=== PATIENT | female | born 1935 | race Caucasian/White ===

== ENCOUNTER 2016-11-13 19:10 | Inpatient (IN) | payer MEDICARE, BC ==
[~2016-11-13] VITALS: Ht 157.5 cm; Wt 83.9 kg
--- NOTE | 2016-11-13 19:20 | NUR ---
80 YO FEMALE BB SELF. PATIENT IS ALERT X 3, C/O LEFT LOWER EXTREMITY PAIN AND SWELLING X 2 WEEKS. NOTED REDNESS AT SITE, CMS DISTAL TO SITE WNL. PT AMBULATED TO ER BED WITH ASSISTANCE. PT GOWNED, PLACED ON MANAGER PROCUREMENT. AWAITING ORDERS FROM PROVIDER, WILL CONTINUE TO MONITOR
[2016-11-13] MEDS ORDERED: TRAM50TA2 PO (19:26)
[2016-11-13] MEDS ORDERED: FURO40TA5 PO (19:26)
[2016-11-13] MEDS ORDERED: MONT10TA22 PO (19:26)
[2016-11-13] MEDS ORDERED: LOSA50TA21 PO (19:26)
[2016-11-13] MEDS ORDERED: QUET25TA PO ×2 (19:26)
[2016-11-13] MEDS ORDERED: INSU100I14 SQ ×3 (19:26)
[2016-11-13] MEDS ORDERED: POTA20TA83 PO (19:26)
[2016-11-13] MEDS ORDERED: CYAN10009 PO (19:26)
[2016-11-13] MEDS ORDERED: CHOL500052 PO (19:26)
[2016-11-13] MEDS ORDERED: INSU3INS6 SQ (19:26)
[2016-11-13] MEDS ORDERED: ROSU10TA PO (19:26)
[2016-11-13] MEDS ORDERED: ASPI81TA2 PO (19:26)
[2016-11-13] MEDS ORDERED: LEVO100T9 PO (19:26)
[2016-11-13] MEDS ORDERED: PROP150T2 PO (19:26)
--- NOTE | 2016-11-13 19:35 | NUR ---
20G RAC IV STARTED, BLOOD SAMPLE OBTAINED AND SENT TO LAB
[2016-11-13 19:46] LABS: BASOPHILS % (AUTO) 0.5 % (0.0-2.0); EOSINOPHILS # (AUTO) 0.2 /CMM (0.0-0.7); EOSINOPHILS % (AUTO) 3.4 % (0.0-6.0); HEMATOCRIT 32 % (33-45); HEMOGLOBIN 10.7 g/dL (11.5-14.8); LYMPHOCYTES # (AUTO) 1.5 /CMM (0.8-4.8); MEAN CORPUSCULAR HEMOGLOBIN 30 PG (26.0-33.0); MEAN CORPUSCULAR HGB CONC 33 g/dl (31.0-36.0); MEAN CORPUSCULAR VOLUME 89 fL (82-100); MONOCYTES # (AUTO) 0.6 /CMM (0.1-1.30); NEUTROPHILS % (AUTO) 67.1 % (43.0-81.0); PLATELET COUNT (AUTO) 348 /CMM (150-450); RDW COEFFICIENT OF VARIATION 13.9 (11.5-15.0); WHITE BLOOD COUNT (AUTO) 7.3 K/uL (4.3-11.0)
--- NOTE | 2016-11-13 19:52 | NUR ---
SOLUTIONS DEVELOPER AT BED SIDE FOR VENOUS DUPLEX
[2016-11-13 19:58] LABS: CALCIUM, SERUM 8.4 mg/dL (8.5-10.1); CARBON DIOXIDE 30 mmol/L (21-32); CHLORIDE 104 mmol/L (98-107); CREATININE 2.1 mg/dL (0.6-1.3); GLUCOSE 85 mg/dL (74-106); POTASSIUM 4.4 mmol/L (3.5-5.1); SODIUM SERUM 142 mmol/L (136-145); UREA NITROGEN, BLOOD 25 mg/dL (7-18)
[2016-11-13] MEDS ORDERED: Z GUARD REMEDY 2 OZ OINT TP PRN (20:00)
[2016-11-13] MEDS ORDERED: MAGNESIUM HYDROXIDE 30 ML UDC PO PRN (20:00)
[2016-11-13] MEDS ORDERED: ONDANSETRON HCL/PF 4 MG/2 ML VIAL IVP PRN (20:00)
[2016-11-13] MEDS ORDERED: HYDROCODONE/APAP 5/325MG 1 EACH TABLET PO PRN (20:00)
[2016-11-13] MEDS ORDERED: TRAMADOL HCL 50 MG TABLET PO PRN (20:00)
[2016-11-13] MEDS ORDERED: ACETAMINOPHEN 325 MG TABLET PO PRN (20:00)
[2016-11-13] MEDS ORDERED: MAG HYDROX/AL HYDROX/SIMETH 30 ML UDC PO PRN (20:00)
[2016-11-13 20:02] LABS: INR 0.99 (0.87-1.13); PROTHROMBIN TIME 10.3 SECS (9.5-12.7)
[2016-11-13 20:09] LABS: ALANINE AMINOTRANSFERASE 27 U/L (12-78); ALBUMIN 3.9 g/dL (3.4-5.0); ALKALINE PHOSPHATASE 79 U/L (46-116); ASPARTATE AMINOTRANSFERASE 23 U/L (15-37); B-TYPE NATRIURETIC PEPTIDE 465 PG/ML (0-125); BILIRUBIN,DIRECT 0.1 mg/dL (0.0-0.2); BILIRUBIN,TOTAL 0.4 mg/dL (0.2-1.0); TOTAL PROTEIN, SERUM 7.1 g/dL (6.4-8.2)
[2016-11-13] MEDS ORDERED: CLINDAMYCIN 900 MG/6 ML VIAL ONE (20:45)
[2016-11-13] MEDS ORDERED: CLINDAMYCIN 600 MG in IV D5W 100 ML IV ONE (21:00)
--- NOTE | 2016-11-13 21:12 | NUR ---
MEDICATED PT ORDERED
[2016-11-13] MEDS ORDERED: BUMETANIDE INJ 4 MG in IV NS 0.9% 24 ML IV ONE (21:30)
[2016-11-13] MEDS ORDERED: FEE PK DOSING 1 MIN EA MC ONE (21:33)
[2016-11-13] MEDS ORDERED: VANCOMYCIN 1 GM in IV D5W 250 ML IV ONE (22:00)
--- NOTE | 2016-11-13 22:00 | NUR ---
pt alert,oriented, ambulatory with walker, admitted for cellulitis both legs, legs swollen and red.with slight pain . medicated x1 of norco with good relief, vss,afebrile,sinus rhythm on monitor.kept legs elevated.call light at reached.
[2016-11-13] MEDS: ASPIRIN 81 MG TAB.CHEW PO SCH (23:00)
[2016-11-13] MEDS: INSULIN LISPRO/ASPART 100 UNIT/ML CARTRIDGE SQ SCH (23:00)
[2016-11-13] MEDS: CYANOCOBALAMIN 500 MCG TABLET PO SCH (23:00)
[2016-11-13 23:01] VITALS: BP 147/59
[2016-11-13] MEDS: INSULIN DETEMIR 100 UNIT/ML CARTRIDGE SQ SCH (23:30)
[2016-11-13] MEDS: ENOXAPARIN SODIUM 30 MG/0.3 ML DISP.SYRIN SQ SCH (23:51)
[2016-11-13] MEDS: ATORVASTATIN 10 MG TABLET PO SCH (23:51)
[2016-11-13] MEDS: QUETIAPINE FUMARATE 25 MG TABLET PO SCH (23:51)
[2016-11-13] MEDS: BLOOD SUGAR DIAGNOSTIC 1 EACH STRIP IN SCH (23:57)
[2016-11-14] VITALS (7 sets, daily range): BP systolic 98–138; BP diastolic 51–65
--- NOTE | 2016-11-14 05:35 | NUR ---
pt slept well overnight after norco, sleeping comfortably with HOB elevated and both legs elevated with pillows, pt on bumex gtt, pt made aware that if didn't void will insert campuzano. pt refused campuzano and get up to commode. voided 600cc. specimen already sent to lab.given vanco without side effect.all needs attended, call light at reached.
[2016-11-14 05:41] LABS: APPEARANCE,URINE CLEAR (CLEAR); BILIRUBIN,URINE NEGATIVE (NEGATIVE); BLOOD, URINE NEGATIVE Ery/uL (NEGATIVE); COLOR,URINE YELLOW (YELLOW); KETONES,URINE NEGATIVE (NEGATIVE); LEUKOCYTE ESTERASE ,URINE NEGATIVE (NEGATIVE); NITRITE, URINE NEGATIVE (NEGATIVE); PROTEIN,URINE NEGATIVE (NEGATIVE); UGLUCOSE NEGATIVE (NEGATIVE); UROBILINOGEN,URINE 0.2 EU/dL (0.2)
[2016-11-14 06:58] LABS: BASOPHILS % (AUTO) 0.3 % (0.0-2.0); EOSINOPHILS # (AUTO) 0.2 /CMM (0.0-0.7); EOSINOPHILS % (AUTO) 3.7 % (0.0-6.0); HEMATOCRIT 30 % (33-45); HEMOGLOBIN 10.1 g/dL (11.5-14.8); LYMPHOCYTES # (AUTO) 1.8 /CMM (0.8-4.8); LYMPHOCYTES % (AUTO) 30.7 % (20.0-44.0); MEAN CORPUSCULAR HEMOGLOBIN 30 PG (26.0-33.0); MEAN CORPUSCULAR HGB CONC 34 g/dl (31.0-36.0); MEAN CORPUSCULAR VOLUME 89 fL (82-100); MONOCYTES # (AUTO) 0.5 /CMM (0.1-1.30); MONOCYTES % (AUTO) 9.1 % (2.0-12.0); NEUTROPHILS # (AUTO) 3.2 /CMM (1.8-8.9); NEUTROPHILS % (AUTO) 56.2 % (43.0-81.0); PLATELET COUNT (AUTO) 270 /CMM (150-450); RED BLOOD CELL COUNT(AUTO) 3.32 MIL/uL (4.0-5.2); WHITE BLOOD COUNT (AUTO) 5.8 K/uL (4.3-11.0)
[2016-11-14] MEDS: BLOOD SUGAR DIAGNOSTIC 1 EACH STRIP IN SCH ×4 (06:58→21:36)
[2016-11-14 07:28] LABS: ALANINE AMINOTRANSFERASE 26 U/L (12-78); ALBUMIN 3.7 g/dL (3.4-5.0); ALKALINE PHOSPHATASE 73 U/L (46-116); ASPARTATE AMINOTRANSFERASE 21 U/L (15-37); BILIRUBIN,TOTAL 0.3 mg/dL (0.2-1.0); CALCIUM, SERUM 8.4 mg/dL (8.5-10.1); CARBON DIOXIDE 32 mmol/L (21-32); CHLORIDE 103 mmol/L (98-107); GLUCOSE 130 mg/dL (74-106); MAGNESIUM 2.3 mg/dL (1.8-2.4); PHOSPHORUS 4.7 mg/dL (2.5-4.9); POTASSIUM 3.9 mmol/L (3.5-5.1); SODIUM SERUM 139 mmol/L (136-145); TOTAL PROTEIN, SERUM 6.6 g/dL (6.4-8.2); UREA NITROGEN, BLOOD 27 mg/dL (7-18)
[2016-11-14 07:30] LABS: CHOLESTEROL 136 mg/dL (<200); HDL CHOLESTEROL 51 mg/dL (40-60); LDL 68 mg/dL (0-99); THYROID STIMULATING HORMONE 6.731 uIU/mL (0.358-3.74); TRIGLYCERIDES 122 mg/dL (30-150)
[2016-11-14] MEDS ORDERED: LEVOTHYROXINE SODIUM 100 MCG TABLET PO SCH (07:30)
[2016-11-14] MEDS: INSULIN LISPRO/ASPART 100 UNIT/ML CARTRIDGE SQ SCH ×2 (07:30→11:30)
--- NOTE | 2016-11-14 07:47 | NUR ---
SPOKE WITH SON RHONA SWIFT ,HE WILL BRING ADVANCE DIRECTIVE LATER TODAY. PT IS FULL CODE WITH [facility].
[2016-11-14] MEDS: CYANOCOBALAMIN 500 MCG TABLET PO SCH (08:44)
[2016-11-14] MEDS: ASPIRIN 81 MG TAB.CHEW PO SCH (08:44)
[2016-11-14] MEDS: QUETIAPINE FUMARATE 25 MG TABLET PO SCH ×2 (08:44→21:28)
[2016-11-14] MEDS: MONTELUKAST SODIUM (10MG) 10 MG TABLET PO SCH (08:45)
[2016-11-14] MEDS: LOSARTAN POTASSIUM 50 MG TABLET PO SCH (08:45)
--- NOTE | 2016-11-14 08:55 | NUR ---
MS/RN Medications Morning medications administered as ordered, no problems swallowing.
[2016-11-14] MEDS: PROPAFENONE HCL 150 MG TABLET PO SCH ×3 (09:00→18:02)
--- NOTE | 2016-11-14 11:30 | NUR ---
MS/RN S/B Dr Alatorre Seen by Dr Alatorre - to continue with current IVAB, and treatemnt. Labs ordered for tomorrow.
--- NOTE | 2016-11-14 12:15 | NUR ---
MS/RN Blood sugar Blood sugar at noon - 184, patient refused coverage.
--- NOTE | 2016-11-14 15:43 | NUR ---
MS/RN S/B Dr Pritchett Seen by Dr Pritchett - renal failure likely due to chronic kidney disease secondary to hypertension. Continue with medications at current dosages.
[2016-11-14] MEDS ORDERED: BUMETANIDE INJ 4 MG in IV NS 0.9% 24 ML IV ONE (17:00)
[2016-11-14] MEDS ORDERED: INSULIN ASPART HUMALOG/NOVOLOG 100 UNIT/ML CARTRIDGE SQ PRN (18:00)
--- NOTE | 2016-11-14 18:25 | NUR ---
MS/RN End note Bumex infusion started at 10ml/hr to run over 4 hours total. Patient educated as to the purpose of bumex and that it will make her void frequently. Bedside commode at bedside. Patient instructed to use call light before getting out of bed. All needs attended at this time, skin has been kept clean and dry, call light within reach, will endorse to overnight cashier.
[2016-11-14] MEDS ORDERED: IV NS 0.9% 500 ML IV ONE (21:00)
[2016-11-14] MEDS ORDERED: IV NS 0.9% 500 ML BAG IV ONE (21:00)
--- NOTE | 2016-11-14 21:00 | NUR ---
PT ALERT,ORIENTED ,DENIES ANY PAIN INFUSING BUMEX GTT, INFUSING WELL TO RAC,VSS,AFEBRILE SINUS ON MONITOR, CALL LIGHT AT REACHED,BED ALARM ACTIVE.
[2016-11-14] MEDS: ATORVASTATIN 10 MG TABLET PO SCH (21:28)
[2016-11-14] MEDS: ENOXAPARIN SODIUM 30 MG/0.3 ML DISP.SYRIN SQ SCH (21:29)
[2016-11-14] MEDS: VANCOMYCIN 0.75 GM in IV D5W 250 ML IV SCH (21:30)
[2016-11-14] MEDS: INSULIN DETEMIR 100 UNIT/ML CARTRIDGE SQ SCH (21:38)
[2016-11-15] VITALS: BP 112/56
[2016-11-15 04:00] VITALS: BP 157/65
[2016-11-15 06:00] VITALS: BP 127/61
[2016-11-15] MEDS: BLOOD SUGAR DIAGNOSTIC 1 EACH STRIP IN SCH ×4 (06:42→21:49)
--- NOTE | 2016-11-15 07:00 | NUR ---
PT VOIDED TO COMMODE WITH ASSIST, SLEPT WELL OVERNIGHT,DENIES ANY PAIN,ACCUCHECK 130MG/DL NO SS, CONTINUE TO MONITOR, SINUS RHYTHM WITH 1AVB.ALL NEEDS ATTENDED,CALL LIGHT AT REACHED
--- NOTE | 2016-11-15 07:10 | NUR ---
MS RN OPENING NOTES RECEIVED PT FROM NIGHTSHIFT NURSE IN STABLE CONDITION. PT IS A/O X3 WITH PERIODS OF FORGETFULNESS. NO SOB OR SIGNS OF DISTRESS NOTED. BREATHING IS EVEN AND UNLABORED. PT DENIES ANY PAIN AT THIS TIME. REDNESS AND SWELLING NOTED ON BILATERAL LOWER EXTREMITIES. IV PRESENT ON RIGHT AC 20G HL. NO REDNESS OR SIGNS OF INFILTRATION NOTED. BED IN LOW LOCKED POSITION, SIDE RAILS UP X2, BEDSIDE COMMODE WITHIN PT'S REACH AND EASY ACCESS, CALL LIGHT WITHIN REACH. PT REMINDED TO CALL FOR ASSISTANCE. PT VERBALIZED UNDERSTANDING. BED ALARM ON. WILL CONTINUE TO MONITOR.
[2016-11-15 07:18] LABS: CALCIUM, SERUM 8.3 mg/dL (8.5-10.1); CARBON DIOXIDE 32 mmol/L (21-32); CHLORIDE 102 mmol/L (98-107); CREATININE 1.8 mg/dL (0.6-1.3); GLUCOSE 121 mg/dL (74-106); POTASSIUM 3.7 mmol/L (3.5-5.1); SODIUM SERUM 140 mmol/L (136-145); UREA NITROGEN, BLOOD 25 mg/dL (7-18)
[2016-11-15] MEDS: INSULIN LISPRO/ASPART 100 UNIT/ML CARTRIDGE SQ SCH ×2 (07:30→11:58)
[2016-11-15 08:00] VITALS: BP 111/75
[2016-11-15] MEDS: CYANOCOBALAMIN 500 MCG TABLET PO SCH (08:29)
[2016-11-15] MEDS: ASPIRIN 81 MG TAB.CHEW PO SCH (08:30)
[2016-11-15] MEDS: MONTELUKAST SODIUM (10MG) 10 MG TABLET PO SCH (08:30)
[2016-11-15] MEDS: QUETIAPINE FUMARATE 25 MG TABLET PO SCH ×2 (08:30→21:47)
[2016-11-15] MEDS: LEVOTHYROXINE SODIUM 100 MCG TABLET PO SCH (08:30)
[2016-11-15] MEDS: PROPAFENONE HCL 150 MG TABLET PO SCH (08:31)
[2016-11-15] MEDS: LOSARTAN POTASSIUM 50 MG TABLET PO SCH (08:31)
[2016-11-15] MEDS ORDERED: BUMETANIDE INJ 6 MG in IV NS 0.9% 36 ML IV ONE (11:00)
[2016-11-15] MEDS ORDERED: METOPROLOL TARTRATE 25 MG TABLET PO SCH (11:25)
[2016-11-15] MEDS: CEFTRIAXONE 1 G in IV D5W 50 ML IV SCH (11:56)
--- NOTE | 2016-11-15 14:36 | NUR ---
MS RN NOTES YANI THE PHYSICAL THERAPY WAS NOTIFIED IN REGARDS TO SEEING THE PT FOR PHYSICAL THERAPY PER DR. RICKS'S REQUEST. PER YANI, "PT WILL SEE THE PT TOMORROW".
[2016-11-15 16:00] VITALS: BP 111/73
--- NOTE | 2016-11-15 19:08 | NUR ---
MS RN CLOSING NOTES PT REMAINS IN STABLE CONDITION. ALL NEEDS WERE MET DURING SHIFT AND ORDERS CARRIED OUT ACCORDINGLY. LOWER EXTREMITIES REMAINED ELEVATED ORDERED BY THE MD. PT DENIES PAIN AT THIS TIME. ALL SAFETY MEASURES REMAIN IN PLACE. FLUID RESTRICTIONS FOLLOWED ORDERED. WILL ENDORSE TO NIGHTSHIFT NURSE FOR LUIS
[2016-11-15 20:00] VITALS: BP_SYST 129; BP_DIAS 46; BP_DIAS 50
--- NOTE | 2016-11-15 20:00 | NUR ---
MS RN NOTES RECEIVED PATIENT RESTING IN BED IN SEMI WATTS POSITION WITH FAMILY AT BEDSIDE. NO C/O PAIN, NO ACUTE DISTRESS NOTED. TALKATIVE, SMILING. PERIPHERAL IV ACCESS TO RAC, INTACT PATENT. ON FLUID RESTRICTIONS ORDERED DUE TO SWELLING OF BLE/CELLULITIS. BED IN LOW LOCKED POSITION. CALL LIGHT IN PLACE. CONTINUING TO OBSERVE.
[2016-11-15] MEDS: ENOXAPARIN SODIUM 30 MG/0.3 ML DISP.SYRIN SQ SCH (21:44)
[2016-11-15] MEDS: METOPROLOL TARTRATE 25 MG TABLET PO SCH (21:46)
[2016-11-15] MEDS: ATORVASTATIN 10 MG TABLET PO SCH (21:48)
[2016-11-15] MEDS: VANCOMYCIN 0.75 GM in IV D5W 250 ML IV SCH (21:49)
[2016-11-15] MEDS: INSULIN DETEMIR 100 UNIT/ML CARTRIDGE SQ SCH (21:54)
--- NOTE | 2016-11-15 23:50 | NUR ---
RN NOTES IV GOT INFILTRATED,. NEW IV LINE INSERTED
--- NOTE | 2016-11-16 06:24 | NUR ---
MS RN NOTES PATIENT SLEPT INTERMITTENTLY AT NIGHT. NO C/O PAIN, NO DISCOMFORT OR DISTRESS NOTED. OUT OF BED TO USE BED SIDE COMMODE. NO WORSENING SYMPTOMS OF CELLULITIS OF BLE NOTED. IN STABLE CONDITION. IV ACCESS TO RIGHT HAND, NO INFILTRATION OR S/S OF INFECTION NOTED. ON FLUID RESTRICTIONS & FOLLOWED MD ORDERS. BED IN LOW LOCKED POSITION. CALL LIGHT WITHIN REACH. ALL NEEDS MET. WILL ENDORSE TO AM SHIFT.
[2016-11-16] MEDS: BLOOD SUGAR DIAGNOSTIC 1 EACH STRIP IN SCH ×4 (06:47→22:47)
--- NOTE | 2016-11-16 07:15 | NUR ---
RN INITIAL NOTES REPORT RECEIVED AT THE BEDSIDE. PATIENT IS RESTING COMFORTABLY IN BED. NO SOB OR DISTRESS NOTED AT THIS TIME. PATIENT DENIES PAIN AT THIS TIME. BED IN A LOW POSITION, CALL LIGHT WITHIN PATIENT REACH. WILL CONTINUE TO MONITOR.
[2016-11-16 07:44] LABS: CALCIUM, SERUM 8.8 mg/dL (8.5-10.1); CARBON DIOXIDE 32 mmol/L (21-32); CHLORIDE 102 mmol/L (98-107); CREATININE 1.9 mg/dL (0.6-1.3); GLUCOSE 126 mg/dL (74-106); POTASSIUM 3.7 mmol/L (3.5-5.1); SODIUM SERUM 141 mmol/L (136-145); UREA NITROGEN, BLOOD 30 mg/dL (7-18)
[2016-11-16 08:00] VITALS: BP 120/64
[2016-11-16 08:15] LABS: IRON, SERUM 62 ug/dl (50-175); TOTAL IRON BINDING CAPACITY 289 ug/dl (250-450)
[2016-11-16] MEDS: METOPROLOL TARTRATE 25 MG TABLET PO SCH ×2 (09:01→21:00)
[2016-11-16] MEDS: LOSARTAN POTASSIUM 50 MG TABLET PO SCH (09:01)
[2016-11-16] MEDS: ASPIRIN 81 MG TAB.CHEW PO SCH (09:01)
[2016-11-16] MEDS: QUETIAPINE FUMARATE 25 MG TABLET PO SCH ×2 (09:01→21:54)
[2016-11-16] MEDS: LEVOTHYROXINE SODIUM 100 MCG TABLET PO SCH (09:01)
[2016-11-16] MEDS: CYANOCOBALAMIN 500 MCG TABLET PO SCH (09:02)
[2016-11-16] MEDS: MONTELUKAST SODIUM (10MG) 10 MG TABLET PO SCH (09:02)
[2016-11-16] MEDS: INSULIN LISPRO/ASPART 100 UNIT/ML CARTRIDGE SQ SCH ×2 (09:04→11:40)
--- NOTE | 2016-11-16 09:06 | NUR ---
RN NOTES PATIENT REQUESTING ONLY HALF OF THE 14U INSULIN ORDERED. 7UNITS GIVEN.
[2016-11-16] MEDS: CEFTRIAXONE 1 G in IV D5W 50 ML IV SCH (10:27)
[2016-11-16 16:00] VITALS: BP 131/69
[2016-11-16] MEDS: LACTOBACILLUS RHAMNOSUS GG 1 EACH CAP.SPRINK PO SCH (17:01)
--- NOTE | 2016-11-16 18:50 | NUR ---
RN CLOSING NOTES NO SIGNIFICANT CHANGES IN PATIENT CONDITION THROUGHOUT THE SHIFT. NO SOB OR DISTRESS NOTED AT THIS TIME. PATIENT DENIES PAIN. BED IN A LOW POSITION, CALL LIGHT WITHIN PATIENT REACH. WILL ENDORSE FOR LUIS.
--- NOTE | 2016-11-16 19:35 | NUR ---
MS/DATA SCIENTIST; RECEIVED PT IN BED AWAKE ALERT AND VERBALLY RESPONSIVE. AT THIS TIME PT. WITH FEMALE VISITOR. PT SAID SHE IS FINE. DENIES PAIN. BOTH LOWER LEGS ARE SWOLLEN AND RED AND KEEP ELEVATED ON PILLOWS. HL ON RT HAND INTACT AND PATENT. BED ON LOWER POSITION AND LOCKED FOR SAFETY. SIDE RAILS ARE UP FOR SAFETY. PT REMINDED TO CALL FOR HELP AND CALL LIGHT WITHIN REACH. WILL CONTINUE TO MONITOR.
[2016-11-16 20:00] VITALS: BP 101/53
[2016-11-16] MEDS: ENOXAPARIN SODIUM 30 MG/0.3 ML DISP.SYRIN SQ SCH (21:51)
[2016-11-16] MEDS: ATORVASTATIN 10 MG TABLET PO SCH (21:53)
--- NOTE | 2016-11-16 22:00 | NUR ---
MS/DEVELOPMENT DIRECTOR; BS 121 NO COVERAGE GIVEN. THERE IS NO ORDER FOR SLIDING SCALE COVERAGE. LEVEMIR INSULIN 30 UNITS SQ GIVEN ROUTINE ORDER. PT ASKED FOR REMIGIO CRACKERS AND APPLE JUICE GIVEN.
--- NOTE | 2016-11-16 22:15 | NUR ---
MS/SOFTWARE QUALITY MANAGER; PT OUT OF BED WENT TO THE BATHROOM WITH WALKER AND ASSISTED BY THE BUILDING CODE ADMINISTRATOR, VOIDED. PT ASSISTED BACK TO BED BY THE BUILDING CODE ADMINISTRATOR .
[2016-11-16] MEDS: VANCOMYCIN 0.75 GM in IV D5W 250 ML IV SCH (22:45)
[2016-11-16] MEDS: INSULIN DETEMIR 100 UNIT/ML CARTRIDGE SQ SCH (22:52)
--- NOTE | 2016-11-17 00:05 | NUR ---
MS/ELECTRICAL ACCESSORIES II ASSEMBLER; C/O PAIN BOTH LOWER LEGS. AT THIS TIME. PT LEGS ARE ELEVATED ON PILLOWS. TYLENOL 650 MG PO TABS Q6 PRN GIVEN ORDERED. WILL MONITOR.
[2016-11-17 06:24] LABS: BASOPHILS % (AUTO) 0.3 % (0.0-2.0); EOSINOPHILS # (AUTO) 0.2 /CMM (0.0-0.7); EOSINOPHILS % (AUTO) 4.4 % (0.0-6.0); HEMATOCRIT 30 % (33-45); HEMOGLOBIN 10.5 g/dL (11.5-14.8); LYMPHOCYTES # (AUTO) 1.4 /CMM (0.8-4.8); LYMPHOCYTES % (AUTO) 27.1 % (20.0-44.0); MEAN CORPUSCULAR HEMOGLOBIN 31 PG (26.0-33.0); MEAN CORPUSCULAR HGB CONC 35 g/dl (31.0-36.0); MEAN CORPUSCULAR VOLUME 89 fL (82-100); MONOCYTES # (AUTO) 0.4 /CMM (0.1-1.30); MONOCYTES % (AUTO) 7.2 % (2.0-12.0); NEUTROPHILS # (AUTO) 3.2 /CMM (1.8-8.9); PLATELET COUNT (AUTO) 236 /CMM (150-450); RDW COEFFICIENT OF VARIATION 14.9 (11.5-15.0); RED BLOOD CELL COUNT(AUTO) 3.43 MIL/uL (4.0-5.2); WHITE BLOOD COUNT (AUTO) 5.2 K/uL (4.3-11.0)
--- NOTE | 2016-11-17 06:37 | NUR ---
MS/MANAGER MOUNTAIN; SLEPT FAIRLY LAST NIGHT. VOIDED AT THE BATHROOM. BREATHING NON LABORED. WILL CONTINUE TO MONITOR. CALL LIGHT WITHIN REACH. WILL ENDORSE TO THE DAY SHIFT NURSE.
[2016-11-17 06:38] LABS: CALCIUM, SERUM 8.7 mg/dL (8.5-10.1); CARBON DIOXIDE 31 mmol/L (21-32); CHLORIDE 102 mmol/L (98-107); CREATININE 1.7 mg/dL (0.6-1.3); GLUCOSE 146 mg/dL (74-106); MAGNESIUM 2.3 mg/dL (1.8-2.4); PHOSPHORUS 4.8 mg/dL (2.5-4.9); POTASSIUM 3.6 mmol/L (3.5-5.1); SODIUM SERUM 138 mmol/L (136-145); UREA NITROGEN, BLOOD 33 mg/dL (7-18)
[2016-11-17 08:00] VITALS: BP 132/54
--- NOTE | 2016-11-17 08:10 | NUR ---
RN OPENING NOTES RECEIVED PT AWAKE RESTING COMFORTABLY IN BED. PT IS AOX3 FORGETFUL. PT DENIES AND CP OR SOB. COMPLAINTS OF LEG PAIN 06/21. WILL IMPLEMENT APPROPRIATE INTERVENTIONS. PT AMBULATES WITH WALKER. R HAND IV ACCESS 22G PATENT AND INTACT H/L. RESPIRATIONS EVEN AND UNLABORED. NO S/S OF ACUTE DISTRESS. BED LOCKED IN THE LOWEST POSITION WITH SIDE RAILS UP X2. CALL LIGHT WITHIN REACH. WILL CONTINUE TO MONITOR, ASSESS AND EDUCATE PATIENT THROUGHOUT SHIFT.
[2016-11-17] MEDS: BLOOD SUGAR DIAGNOSTIC 1 EACH STRIP IN SCH ×3 (08:21→18:03)
[2016-11-17] MEDS ORDERED: BUMETANIDE INJ 4 MG in IV NS 0.9% 24 ML IV ONE (08:30)
[2016-11-17] MEDS: LEVOTHYROXINE SODIUM 100 MCG TABLET PO SCH (09:21)
[2016-11-17] MEDS: LOSARTAN POTASSIUM 50 MG TABLET PO SCH (09:21)
[2016-11-17] MEDS: MONTELUKAST SODIUM (10MG) 10 MG TABLET PO SCH (09:21)
[2016-11-17] MEDS: ASPIRIN 81 MG TAB.CHEW PO SCH (09:21)
[2016-11-17] MEDS: CYANOCOBALAMIN 500 MCG TABLET PO SCH (09:21)
[2016-11-17] MEDS: LACTOBACILLUS RHAMNOSUS GG 1 EACH CAP.SPRINK PO SCH ×2 (09:21→18:03)
[2016-11-17] MEDS: QUETIAPINE FUMARATE 25 MG TABLET PO SCH (09:21)
[2016-11-17] MEDS: METOPROLOL TARTRATE 25 MG TABLET PO SCH (09:23)
[2016-11-17] MEDS: INSULIN LISPRO/ASPART 100 UNIT/ML CARTRIDGE SQ SCH ×2 (09:25→12:30)
--- NOTE | 2016-11-17 10:48 | NUR ---
RN NOTES DR. REED REQUESTED PATIENT AMBULATE PRIOR TO DISCHARGE. PATIENT TO BE PICKED UP BY SON. PATIENT AMBULATED TO RESTROOM WITH WALKER. PATIENT TOLERATED WELL. WILL CONTINUE TO MONITOR.
[2016-11-17] MEDS: CEFTRIAXONE 1 G in IV D5W 50 ML IV SCH (11:10)
[2016-11-17 16:00] VITALS: BP 105/47
[2016-11-17 20:00] VITALS: BP 96/46
--- NOTE | 2016-11-17 20:10 | NUR ---
rn notes: didnt receive any report from day rn arik, pt left already picked up by son, dc home
[2016-11-18] MEDS ORDERED: ERGOCALCIFEROL (VITAMIN D 2) 50,000 UNIT CAPSULE PO SCH (07:30)
== END 2016-11-17 22:19 | disposition home health service (06) | DRG 291 ==
LOC: ER 19:12 → MED 20:54 → TELE 21:36 → MED 11-15 13:42
PROVIDERS: ADMIT Internal Medicine; ATTEND Internal Medicine
DX: I13.0 Hypertensive heart and chronic kidney disease with heart failure and stage 1 through stage 4 chronic kidney disease, or unspecified chronic kidney disease (principal); I50.33 Acute on chronic diastolic (congestive) heart failure; N17.0 Acute kidney failure with tubular necrosis; L03.115 Cellulitis of right lower limb; L03.116 Cellulitis of left lower limb; E11.22 Type 2 diabetes mellitus with diabetic chronic kidney disease; I48.91 Unspecified atrial fibrillation; J44.9 Chronic obstructive pulmonary disease, unspecified; E66.9 Obesity, unspecified; Z68.33 Body mass index [BMI] 33.0-33.9, adult; I11.0 Hypertensive heart disease with heart failure; E03.9 Hypothyroidism, unspecified; E78.5 Hyperlipidemia, unspecified; I25.10 Atherosclerotic heart disease of native coronary artery without angina pectoris; Z79.82 Long term (current) use of aspirin; Z79.899 Other long term (current) drug therapy; Z79.4 Long term (current) use of insulin; Z87.891 Personal history of nicotine dependence; N18.9 Chronic kidney disease, unspecified
CPT/HCPCS: 36415; 71010-TC; 80048-TC; 80053-TC; 80061-TC; 80076-TC; 80202-TC; 81000-TC; 82962-TC; 83540-TC; 83735-TC; 83880; 84100-TC; 84443-TC; 84484-TC; 85025-TC; 85730-TC; 87081-TC; 93307-TC; 93970-TC; A4216; A4606; J0696; J1650; J1815; J3370; J3490; J7030; J7050; J7060; Z7610

== ENCOUNTER 2020-05-19 12:34 | Emergency (ER) | payer MEDICARE, BC ==
[~2020-05-19] VITALS: Ht 165.1 cm; Wt 113.4 kg
[~2020-05-19 12:34] MED LIST: ASPI-1169 PO; CHOL500052 PO; CYAN-51 PO; INSU100I14 SQ; INSU3INS6 SQ; LOSA50TA39 PO; MONT10TA22 PO; POTA20TA83 PO; QUET25TA PO; ROSU10TA2 PO; TRAM50TA2 PO
--- NOTE | 2020-05-19 13:39 | NUR ---
[facility] FROM SNF TO ER BED 7. AAOX2. NOT IN RESP DISTRESS, BREATHING EVEN AND UNLABORED. BROUGHT IN FOR DIFISED ABD PAIN PT UNABLE TO VERBALIZE WHEN SHE STARTED TO HAVE IT. NOTED TENDERNESS UPON PALPATION ON THE RUQ ABD. PT IS NOTED BURPING. WAS AT THE BEDSIDE FOR EVAL. ORDERS RECEIVED, NOTED AND CARRIED OUT. IV LINE ESTABLSIHED ON LFA 22G. BLOOD DRAWN AND GIVEN TO PHLEB AT BEDSIDE. EKG DONE. PT ON MONITOR
[2020-05-19 13:47] LABS: BASOPHILS % (AUTO) 0.4 % (0.0-2.0); HEMATOCRIT 30 % (33-45); HEMOGLOBIN 9.7 g/dL (11.5-14.8); LYMPHOCYTES # (AUTO) 0.6 /CMM (0.8-4.8); LYMPHOCYTES % (AUTO) 7.4 % (20.0-44.0); MEAN CORPUSCULAR HGB CONC 33 g/dl (31.0-36.0); MEAN CORPUSCULAR VOLUME 93 fL (82-100); MONOCYTES # (AUTO) 0.5 /CMM (0.1-1.30); MONOCYTES % (AUTO) 6.1 % (2.0-12.0); NEUTROPHILS # (AUTO) 6.4 /CMM (1.8-8.9); NEUTROPHILS % (AUTO) 84.1 % (43.0-81.0); PLATELET COUNT (AUTO) 309 /CMM (150-450); RED BLOOD CELL COUNT(AUTO) 3.18 MIL/uL (4.0-5.2); WHITE BLOOD COUNT (AUTO) 7.6 K/uL (4.3-11.0)
[2020-05-19 13:58] LABS: CALCIUM, SERUM 8.9 mg/dL (8.5-10.1); CARBON DIOXIDE 25 mmol/L (21-32); CHLORIDE 102 mmol/L (98-107); CREATININE 2.5 mg/dL (0.6-1.3); GLUCOSE 284 mg/dL (74-106); POTASSIUM 5.4 mmol/L (3.5-5.1); SODIUM SERUM 135 mmol/L (136-145); UREA NITROGEN, BLOOD 79 mg/dL (7-18)
--- NOTE | 2020-05-19 14:01 | NUR ---
URINE OBTAINED BY IN & OUT CATH PER MD FLORES. SPECIMEN SENT TO LAB, NOTED YELLOW CLOUDY URINE.
[2020-05-19 14:04] LABS: ALANINE AMINOTRANSFERASE 20 U/L (12-78); ALBUMIN 3.3 g/dL (3.4-5.0); ALKALINE PHOSPHATASE 109 U/L (46-116); ASPARTATE AMINOTRANSFERASE 20 U/L (15-37); BILIRUBIN,DIRECT 0.2 mg/dL (0.0-0.2); BILIRUBIN,TOTAL 0.5 mg/dL (0.2-1.0); LIPASE 303 U/L (73-393); TOTAL PROTEIN, SERUM 6.8 g/dL (6.4-8.2)
[2020-05-19 15:06] LABS: BILIRUBIN,URINE Negative (NEGATIVE); COLOR,URINE YELLOW (YELLOW); LEUKOCYTE ESTERASE ,URINE Moderate (NEGATIVE); NITRITE, URINE Negative (NEGATIVE); PROTEIN,URINE 100 mg/dl (NEGATIVE); UGLUCOSE Negative (NEGATIVE); UROBILINOGEN,URINE 0.2 EU/dL (0.2)
[2020-05-19 15:10] LABS: RBC,URINE 21-50 /HPF (0-2)
[2020-05-19 15:11] LABS: BACTERIA,URINE Many /HPF (None Seen); SQUAMOUS EPITHELIAL CELL,UR Few /HPF (None Seen); WBC,URINE 21-50 /HPF (0-3)
--- NOTE | 2020-05-19 16:15 | NUR ---
[facility] CALLED FOR ENCION COUNSELING CASE MANAGER PAGED.
--- NOTE | 2020-05-19 16:33 | NUR ---
DR. ORTIZ SPEAKING WITH SON RHONA
[2020-05-19 16:51] LABS: B-TYPE NATRIURETIC PEPTIDE 1829 PG/ML (0-125)
--- NOTE | 2020-05-19 16:58 | NUR ---
FAXED FACE SHEET TO [facility] SUP [phone] AWAITING TELE BED.
--- NOTE | 2020-05-19 17:34 | NUR ---
CALLED JOAN MOISE PT GOING TO ROOM 304 CALL [phone] FOR REPORT
--- NOTE | 2020-05-19 17:36 | NUR ---
[facility] ETA 75-90 MINS AM R[facility]KA ETA 193
--- NOTE | 2020-05-19 17:40 | NUR ---
CALLED BRINDA BOGGS [phone] PER ISAAC.
--- NOTE | 2020-05-19 18:48 | NUR ---
spoke with MANDY Asif for report but told to call back in 20 min because the nurse taking report will be from the next shift.
[2020-05-19 19:40] VITALS: BP 109/59
--- NOTE | 2020-05-19 19:48 | NUR ---
REPORT GIVEN TO MANDY NAVA FOR LUIS AT THE [facility]
--- NOTE | 2020-05-19 19:55 | NUR ---
[facility] 245 AT BEDSIDE FOR PT TRANSPORT TO [facility]. REPORT GIVEN.
--- NOTE | 2020-05-19 20:00 | NUR ---
PT LEFT IN [facility] 2 EMT AT BEDSIDE. PT IS IN STABLE CONDITION FOR TRANSPORT.
== END 2020-05-19 20:01 | disposition short-term general hospital (02) ==
LOC: ER 12:42
DX: N17.9 Acute kidney failure, unspecified (principal); R94.31 Abnormal electrocardiogram [ECG] [EKG]; Z20.822 Contact with and (suspected) exposure to COVID-19; E11.9 Type 2 diabetes mellitus without complications; Z79.4 Long term (current) use of insulin; R10.9 Unspecified abdominal pain; F03.90 Unspecified dementia, unspecified severity, without behavioral disturbance, psychotic disturbance, mood disturbance, and anxiety
CPT/HCPCS: 36415; 71045-TC; 80048-TC; 80076-TC; 81001; 83690-TC; 83880; 84484-TC; 85025-TC; 87086-TC; 87186-TC; C9803; U0003